=== PATIENT | male | born 1965 | race Caucasian/White ===

== ENCOUNTER 2016-11-04 07:29 | Day surgery (SDC) | payer MEDICAID ==
[~2016-11-04 07:29] MED LIST: ACETAMINOPHEN 1000MG/100 ML PREMIX IV ONE; CEFAZOLIN 1 Gram 50 ML IVPB ONE
[2016-11-04] MEDS ORDERED: HYDROCODONE/APAP 5/325MG TABLET PO ONE (14:00)
[2016-11-04] MEDS ORDERED: BUPIVACAINE 0.25% W/EPI MPF 30ML VIAL IVP ONE (14:00)
[2016-11-04] MEDS ORDERED: ARTIFICIAL TEARS OPTH ONE (15:35)
[2016-11-04] MEDS ORDERED: MIDAZOLAM HCL 2MG/2ML VIAL IV ONE (15:35)
[2016-11-04] MEDS ORDERED: FENTANYL PF 100MCG/2ML VIAL IV ONE (15:35)
[2016-11-04] MEDS ORDERED: KETOROLAC 30 MG/ML VIAL IVP ONE (15:35)
[2016-11-04] MEDS ORDERED: PROPOFOL 10 MG/ML VIAL IV ONE (15:35)
[2016-11-04] MEDS ORDERED: SEVOFLURANE 250 ML INH ONE (15:35)
[2016-11-04] MEDS ORDERED: ONDANSETRON HCL IV 4 MG/2 ML VIAL IVP ONE (15:35)
[2016-11-04] MEDS ORDERED: LIDOCAINE 2% MDV (20MG/ML) 20ML VIAL IV ONE (15:35)
--- NOTE | 2016-11-07 13:10 | Operative Note ---
DATE OF SURGERY: 11/04/2016 PREOPERATIVE DIAGNOSIS: Multiple facial and scrotal masses. POSTOPERATIVE DIAGNOSIS: Multiple facial and scrotal masses. OPERATION: Excision of left nasal, right perioral and scrotal mass. Surgeon: Jonas Leavitt D.O. CARDIAC MONITOR: Silvio. Indication: The patient is a 51-year-old male who had what appeared to be large sebaceous cysts in the nasal, oral and scrotal area for many, many years. He did discuss excision of these. Risks, benefits and alternatives were discussed. Risks include bleeding, infection, recurrence, postoperative infection. He understood this fully. Consent was signed and questions answered. PROCEDURE: He was taken to the Operating Room and placed in the supine position. General anesthesia was administered per Department of Anesthesia. The patient's face and scrotum were prepped and draped in the usual sterile fashion. Starting on the face, the area at the right edge of the mouth was anesthetized with a total of 3 mL of 0.25% Sensorcaine with epinephrine. Elliptical incision was made around a rather large sebaceous cyst. This was carried down just above the obicularis marian muscle. The cyst was then passed off the field without rupture. The wound was curvilinear and closed with 4-0 Vicryl and 5-0 Monocryl. Dermabond was then placed. Attention was now turned to the left side of the nose where another large sebaceous cyst was encountered. This was ellipsed and closed in a similar fashion. Attention now turned to the scrotum where the area was anesthetized with a total of 4 mL of 0.25% Sensorcaine with epinephrine. A straight incision was made carrying this down on top of the mass. This was dissected free from the scrotal skin with cautery. This was passed off the field. This was closed with 4-0 Vicryl in an interrupted fashion. The area on the perioral region was 3 x 2 cm in the subcu, nasal area was 2 x 2 cm in the subcu and the scrotum was 4 x 2 cm in the subcu. He was taken to the Recovery Room in satisfactory condition. I let him know that he may experience some perioral numbness, tingling for a bit and he understands this fully. Jonas Leavitt, DO MTDD
== END 2016-11-04 11:02 | disposition home or self-care (01) ==
LOC: SUR 07:29
PROVIDERS: ATTEND Surgery
DX: L72.3 Sebaceous cyst (principal); L72.0 Epidermal cyst; I10 Essential (primary) hypertension
CPT/HCPCS: 11444; 11424; 12052; 11442; 00300; J1885; J2405; J3010; J0690

== ENCOUNTER 2018-04-19 10:40 | Emergency (ER) | payer MEDICAID ==
[2018-04-19] MEDS ORDERED: HYDROCODONE/APAP 7.5/325MG TABLET PO ONE (10:45)
--- NOTE | 2018-04-19 10:50 | Emergency Department Record ---
History of Present Illness - General Chief complaint: Extremity Problem Stated complaint: SWOLLEN RT HAND-INJURY Time Seen by Provider: 04/19/18 10:45 Source: Patient, Family Mode of Arrival: Ambulatory Limitations: No limitations - History of Present Illness Initial comments: 52 yo male presents with a right hand injury. Last night he punched a wall with closed fist. He has pain and swelling today. He has full ROM but with pain. The skin is intact. No other injuries or changes in his health. No PCP. He is inconsistently compliant with his HTN medication. MD Complaint: Extremity pain, Joint pain Onset/Timin -: Days(s) Location: Right, Hand History of Same: No -: Yes Arthralgia Radiation: None Severity scale (1-10): 10 Quality: Aching Consistency: Constant Improves with: Nothing Worsens with: Nothing Associated Symptoms: Denies other symptoms - Related Data Previous Rx's Medication Instructions Recorded Hydrocodone/Acetaminophen [Lamont 1 tab PO Q6H PRN #12 tab 04/19/18 5mg/325mg] Allergies Allergy/AdvReac Type Severity Reaction Status Date / Time No Known Allergies Allergy no Verified 04/19/18 11:26 allergies Travel Screening - Travel/Exposure Within Last 30 Days Have you traveled within the last 30 days?: No Review of Systems Constitutional: Denies: Chills, Fever, Weakness Eyes: Denies: Eye discharge ENT: Denies: Congestion, Throat pain Respiratory: Denies: Cough Cardiovascular: Denies: Chest pain, Syncope Endocrine: Denies: Fatigue Gastrointestinal: Denies: Abdominal pain, Diarrhea, Nausea, Vomiting Genitourinary: Denies: Dysuria, Frequency, Hematuria Musculoskeletal: Reports: As per HPI, Arthralgia, Joint swelling. Denies: Back pain, Myalgia Skin: Reports: Bruising. Denies: Change in color, Rash Neurological: Denies: Headache Psychiatric: Denies: Anxiety Hematological/Lymphatic: Denies: Easy bleeding, Easy bruising Past Medical History - SOCIAL HISTORY Smoking Status: Current every day smoker - RESPIRATORY Hx Respiratory Disorders: Yes Hx Bronchitis: Yes - CARDIOVASCULAR Hx Cardio Disorders: Yes Hx Hypertension: Yes (on meds good control) - NEURO Hx Neuro Disorders: No - GI Hx GI Disorders: No - Hx Genitourinary Disorders: No - ENDOCRINE Hx Endocrine Disorders: No - MUSCULOSKELETAL Hx Musculoskeletal Disorders: Yes - PSYCH Hx Psych Problems: No - HEMATOLOGY/ONCOLOGY Hx Hematology/Oncology Disorders: No Physical Exam - General General Appearance: Alert, Oriented x3, Cooperative, No acute distress Limitations: No limitations - Head Head exam: Atraumatic, Normocephalic, Normal inspection Head exam detail: negative: Abrasion, Contusion, Hematoma, Laceration - Eye Eye exam: Normal appearance. negative: Conjunctival injection, Scleral icterus - ENT ENT exam: Normal exam, Mucous membranes moist Ear exam: Normal external inspection Nasal Exam: Normal inspection Mouth exam: Normal external inspection - Neck Neck exam: Normal inspection, Full ROM. negative: Tenderness - Cardiovascular Cardiovascular Exam: Regular rate, Normal rhythm, Normal heart sounds Peripheral Pulses: 2+: Radial (R) - Extremities Extremities exam: Full ROM, Joint swelling, Normal capillary refill, Tenderness. negative: Normal inspection Image of Hand: 1 - swelling, tenderness, slight bruising, intact skin, normal anatomic alignment - Back Back exam: Reports: Full ROM - Neurological Neurological exam: Alert, Oriented X3. negative: Motor sensory deficit - Psychiatric Psychiatric exam: Normal affect, Normal mood - Skin Skin exam: Dry, Intact, Normal color, Warm Course - Reevaluation(s) Reevaluation #1: XR ordered for hand injury on the right. 04/19/18 10:49 XR reviewed. Fracture of the base of the 5th MC with impaction, comminuted. Referral. The injure was stabilized with an ulnar gutter splint and referral made for follow up. 04/19/18 11:39 Disposition Disposition: Discharge Clinical Impression: Closed fracture of 5th metacarpal Qualifiers: Encounter type: initial encounter Metacarpal location: shaft Fracture alignment : displaced Laterality: right Qualified Code(s): S62.326A - Displaced fracture of shaft of fifth metacarpal bone, right hand, initial encounter for closed fracture Disposition: Home, Self-Care Condition: (1) Good Instructions: Hand Fracture (ED) Additional Instructions: Ice the hand 3 times daily and keep elevated Call your doctor Friday for follow up You have been referred to the orthopedic clinic at [facility] for follow up as well No use or lifting with your right hand Prescriptions: Hydrocodone/Acetaminophen [Lamont 5mg/325mg] 1 tab PO Q6H PRN #12 tab PRN Reason: Pain - General Referrals: DANITZA ANDERSON [DOCTOR OF OSTEOPATH] - [facility] [Provider Group] Forms: Patient Portal Access Time of Disposition: 11:21 Quality - Quality Measures Quality Measures: N/A - Blood Pressure Screening Does Patient Have Any of the Following: Active Dx of HTN Blood Pressure Classification: Hypertensive Reading Systolic Measurement: 172 Diastolic Measurement: 122 Screening for High Blood Pressure: Patient Exclusion, Hx of HTN [[id number]]
--- NOTE | 2018-04-20 14:33 | RADIOLOGY REPORT ---
EXAM: RIGHT HAND, THREE VIEWS HISTORY: PUNCHED WALL LAST NIGHT. PAIN AND SWELLING IN THE METACARPAL REGION. TECHNIQUE: Three views of the right hand were obtained. FINDINGS: There is a comminuted fracture involving the fifth metatarsal base and proximal shaft. The fracture appears to extend into the fifth CMC joint. There is approximately 2-3 mm of impaction involving the fifth metacarpal base. Mild volar angulation. The fourth metacarpal base is also somewhat obscured and fracture in this region would be difficult to completely exclude. Moderate soft tissue swelling. IMPRESSION: 1. COMMINUTED IMPACTED FRACTURE INVOLVING THE FIFTH METACARPAL BASE EXTENDING INTO THE CMC JOINT. 2. OBSCURATION OF THE FOURTH METACARPAL BASE. IT WOULD BE DIFFICULT TO COMPLETELY EXCLUDE FRACTURE IN THIS REGION. 3. MODERATE SOFT TISSUE SWELLING. JOB NUMBER: [id number] [facility]
== END 2018-04-19 11:46 | disposition home or self-care (01) ==
LOC: ER 10:40
DX: S62.316A Displaced fracture of base of fifth metacarpal bone, right hand, initial encounter for closed fracture (principal); W22.8XXA Striking against or struck by other objects, initial encounter; I10 Essential (primary) hypertension; F17.210 Nicotine dependence, cigarettes, uncomplicated
CPT/HCPCS: 99283